=== PATIENT | female | born 1970 | race Two or more races ===

== ENCOUNTER 2023-02-21 07:04 | Emergency (ER) | payer OTHER ==
[2023-02-21] MEDS ORDERED: ONDANSETRON 4 MG/2 ML VIAL IVPUSH ONE (07:40)
[2023-02-21 07:44] VITALS: BP 126/89; PULSE 59; RESP 16; TEMP 97.6; BMI 21.5
[2023-02-21] MEDS ORDERED: ONDANSETRON 4 MG/2 ML VIAL ONE (08:14)
[2023-02-21 08:53] LABS: BASO % 0.5 % (0-2.0); EOS % 4.2 % (0-4.5); MCH 29.2 pg (25.7-33.7); MCHC 34.2 g/dl (32.0-36.0); MEAN CELL VOLUME 85.6 fl (80-96); MEAN PLT VOLUME 7.6 fl (7.5-11.1); MONO % 7.6 % (3.8-10.2); NEUT % 37.7 % (42.8-82.8); PLATELET COUNT 273 10^3/uL (134-434); RBC 4.79 M/mm3 (3.60-5.2); RDW 13.5 % (11.6-15.6); WHITE BLOOD COUNT 3.8 K/mm3 (4.0-10.0)
[2023-02-21 09:21] LABS: ALBUMIN 4.1 g/dl (3.4-5.0); CALCIUM 9.3 mg/dL (8.5-10.1)
[2023-02-21 09:22] LABS: BLOOD UREA NITROGEN 11.1 mg/dL (7-18); MAGNESIUM 2.5 mg/dL (1.8-2.4)
[2023-02-21 09:25] LABS: CREATININE 0.5 mg/dL (0.55-1.3)
[2023-02-21 09:26] LABS: BILIRUBIN,TOTAL 0.4 mg/dL (0.2-1)
[2023-02-21 09:27] LABS: TOT PROT 7.3 g/dl (6.4-8.2)
[2023-02-21] MEDS ORDERED: MECLIZINE HCL 25 MG TABLET (FP) PO ONE (10:27)
[2023-02-21] MEDS ORDERED: MECLIZINE HCL 25 MG TABLET (FP) ONE (10:56)
== END 2023-02-21 11:24 | disposition home or self-care (01) ==
LOC: JER 07:04
PROC: 3E033GC Introduction of Other Therapeutic Substance into Peripheral Vein, Percutaneous Approach (ICD-10-PCS; principal; 2023-02-21)
DX: R42 Dizziness and giddiness (principal); R06.02 Shortness of breath; R51.9 Headache, unspecified; R11.0 Nausea; Z20.822 Contact with and (suspected) exposure to COVID-19
CPT/HCPCS: 0241U-QW; 36415; 70450-TC; 80053; 83735; 84443; 84484; 85025; 93005; 93010; 96374; 99285-25

== ENCOUNTER 2023-06-05 19:19 | Emergency (ER) | payer OTHER ==
[2023-06-05 19:54] VITALS: BP 122/75; PULSE 74; RESP 20; TEMP 98.2; BMI 27.1
[2023-06-05] MEDS ORDERED: ASPIRIN 81 MG CHEWABLE TABLETS PO ONE (20:19)
[2023-06-05] MEDS ORDERED: MAG HYDROX/AL HYDROX/SIMETH 30 ML UNIT-DOSE CUP PO ONE (20:28)
[2023-06-05] MEDS ORDERED: FAMOTIDINE 20 MG/50 ML IVPB 20 MG/50 ML MG IVPB ONE ×2 (20:28→20:58)
[2023-06-05] MEDS ORDERED: SODIUM CHLORIDE 0.9% 500 ML INFUS.BAG IV ONE (20:28)
[2023-06-05] MEDS ORDERED: METOCLOPRAMIDE HCL INJECTION 10 MG/2 ML VIAL IVPUSH ONE (20:28)
[2023-06-05] MEDS ORDERED: ASPIRIN 81 MG CHEWABLE TABLETS ONE (20:57)
[2023-06-05] MEDS ORDERED: METOCLOPRAMIDE HCL INJECTION 10 MG/2 ML VIAL ONE (20:58)
[2023-06-05] MEDS ORDERED: MAG HYDROX/AL HYDROX/SIMETH 30 ML UNIT-DOSE CUP ONE (20:58)
[2023-06-05 21:25] LABS: BASO % 0.2 % (0-2.0); EOS % 0.3 % (0-4.5); HEMOGLOBIN 13.4 GM/dL (10.7-15.3); LYMPH % 13.4 % (8-40); MCH 29.6 pg (25.7-33.7); MCHC 34.2 g/dl (32.0-36.0); MEAN CELL VOLUME 86.5 fl (80-96); MEAN PLT VOLUME 8.1 fl (7.5-11.1); MONO % 6.1 % (3.8-10.2); PLATELET COUNT 261 10^3/uL (134-434); RBC 4.51 M/mm3 (3.60-5.2); RDW 13.1 % (11.6-15.6); WHITE BLOOD COUNT 10.6 K/mm3 (4.0-10.0)
[2023-06-05 21:49] LABS: POTASSIUM 3.9 mmol/L (3.5-5.1)
[2023-06-05 21:51] LABS: ALBUMIN 3.8 g/dl (3.4-5.0); BLOOD UREA NITROGEN 14.4 mg/dL (7-18); CALCIUM 9.3 mg/dL (8.5-10.1)
[2023-06-05 21:54] LABS: CREATININE 0.6 mg/dL (0.55-1.3)
[2023-06-05 21:56] LABS: BILIRUBIN,TOTAL 0.3 mg/dL (0.2-1); TOT PROT 7.6 g/dl (6.4-8.2)
== END 2023-06-05 23:45 | disposition home or self-care (01) ==
LOC: JER 19:19
PROC: 3E033GC Introduction of Other Therapeutic Substance into Peripheral Vein, Percutaneous Approach (ICD-10-PCS; principal; 2023-06-05)
PROC: 3E033GC Introduction of Other Therapeutic Substance into Peripheral Vein, Percutaneous Approach (ICD-10-PCS; 2023-06-05)
DX: U07.1 COVID-19 (principal); R05.9 Cough, unspecified; R07.9 Chest pain, unspecified; R06.02 Shortness of breath; R50.9 Fever, unspecified; R51.9 Headache, unspecified
CPT/HCPCS: 0241U-QW; 36415; 71045-TC-FY; 80053; 83690; 84484; 85025; 93005; 93010; 96365; 96375; 99285-25